=== PATIENT | female | born 1975 | race Caucasian/White ===

== ENCOUNTER → 2017-04-28 | Outpatient (CLI) | payer OTHER ==
[~2017-04-28] MED LIST: ALEVE 220MG220 MG PO; BCP TD; FASTIN; FASTIN30 MG PO; FLEXERIL 1010 MG/TAB PO; LORTAB 7.5/5001 TAB PO; PEPCID 20MG TAB20 MG PO; PERCOCET 5/321 UDTAB PO; TOPAMAX50 MG PO
== END ==
LOC: MC.RAD 15:07
DX: Z12.31 Encounter for screening mammogram for malignant neoplasm of breast (principal)

== ENCOUNTER → 2019-05-13 | Outpatient (CLI) | payer OTHER | LOC: MC.RAD 07:35 | DX: Z12.31 Encounter for screening mammogram for malignant neoplasm of breast (principal) ==